=== PATIENT | female | born 1980 | race Caucasian/White ===

== ENCOUNTER 2019-03-09 05:33 | Emergency (ER) | payer OTHER ==
[2019-03-09] MEDS ORDERED: SODIUM CHLORIDE 0.9% 1,000 ML IV ONE (05:49)
--- NOTE | 2019-03-09 05:52 | ED Physician Documentation ---
History of Present Illness - Stated complaint Stated Complaint: DIFF BREATHING - Chief complaint Chief Complaint: Resp - History obtained from History obtained from: Patient - Additonal information Additional information: Patient is a previously healthy 38-year-old female presenting with right-sided pleuritic chest pain and SOB that began about 1 day ago. Patient denies trauma, fall, or inciting incident.Patient did have plantar fasciitis surgery to her right foot about 1 month ago and denies any complications with such including any new significant leg pain or swelling. Patient does not have history of clotting disorder or previous clots including DVT or PE. Patient denies other chest pain, productive cough, fever, vomiting, urinary or stool changes. No other improving or worsening factors noted. Review of Systems Constitutional: denies: Fever Cardiac: reports: Chest pain / pressure. denies: Calf pain Respiratory: reports: Dyspnea PD PAST MEDICAL HISTORY - Past Medical History Past Medical History: No - Past Surgical History Past Surgical History: Yes Other past surgical history: Plantar fasciitis, bunion removal, ligament repair - Present Medications Home Medications: Ambulatory Orders Medication Instructions Recorded Confirmed Acetaminophen [Tylenol] 650 mg PO Q6H PRN 03/09/19 03/09/19 - Allergies Allergies/Adverse Reactions: Allergies Allergy/AdvReac Type Severity Reaction Status Date / Time No Known Drug Allergies Allergy Verified 03/09/19 05:37 PD ED PE NORMAL - Vitals Vital signs reviewed: Yes - General General: Alert and oriented X 3, No acute distress, Well developed/nourished - HEENT HEENT: Atraumatic, Moist mucous membranes - Cardiac Cardiac: RRR, No murmur, Other (No reproducible chest pain) - Respiratory Respiratory: No respiratory distress, Clear bilaterally - Abdomen Abdomen: Normal bowel sounds, Soft, Non tender, Non distended - Derm Derm: Normal color, Warm and dry, No rash - Extremities Extremities: No deformity, No edema, No calf tenderness / cord, Other (Walking boot in place over right foot) - Neuro Neuro: Alert and oriented X 3, No motor deficit, No sensory deficit - Psych Psych: Normal mood, Normal affect Results - Vitals Vitals: Vital Signs - 24 hr 03/09/19 05:37 Temperature 37.6 C H Heart Rate 91 Respiratory 20 Rate Blood Pressure 130/77 O2 Saturation 97 Oxygen O2 Source Room air - EKG (time done) 0554 Rate: Rate (enter#) (79) Rhythm: NSR - Labs Labs: Laboratory Tests 03/09/19 03/09/19 03/09/19 05:50 05:50 05:50 WBC 6.8 RBC 4.11 L Hgb 12.3 Hct 37.3 MCV 90.9 MCH 30.0 MCHC 33.0 RDW 14.9 Plt Count 304 MPV 7.6 L Neut # (Auto) 4.5 Lymph # (Auto) 1.8 [place] # (Auto) 0.4 Eos # (Auto) 0.1 Baso # (Auto) 0.0 Absolute Nucleated RBC 0.00 Nucleated RBC % 0.0 PT 11.3 INR 1.0 APTT 28.5 Sodium 136 Potassium 3.9 Chloride 105 Carbon Dioxide 20 L Anion Gap 11.0 BUN 19 Creatinine 0.7 Estimated GFR (MDRD) 93 Glucose 108 H Calcium 9.1 Total Bilirubin 0.6 AST 21 ALT 29 Alkaline Phosphatase 95 Troponin I Total Protein 6.9 Albumin 4.0 Globulin 2.9 Albumin/Globulin Ratio 1.4 Lipase 33 Serum HCG, Qual NEGATIVE 03/09/19 05:50 WBC RBC Hgb Hct MCV MCH MCHC RDW Plt Count MPV Neut # (Auto) Lymph # (Auto) [place] # (Auto) Eos # (Auto) Baso # (Auto) Absolute Nucleated RBC Nucleated RBC % PT INR APTT Sodium Potassium Chloride Carbon Dioxide Anion Gap BUN Creatinine Estimated GFR (MDRD) Glucose Calcium Total Bilirubin AST ALT Alkaline Phosphatase Troponin I < 0.04 Total Protein Albumin Globulin Albumin/Globulin Ratio Lipase Serum HCG, Qual PD MEDICAL DECISION MAKING - ED course Complexity details: reviewed old records, reviewed results, re-evaluated patient, considered differential, d/w patient ED course: Given patient's pleuritic chest pain, shortness of breath, and recent surgery, do have concern for possible PE. Patient is not appropriate for ddimer or PERC rule out. Have lower suspicion for ACS, myocardial infarction, unstable angina based on exam, complaints, and otherwise young and healthy patient. However, will obtain EKG and troponin. Given duration of symptoms, repeat troponin will not be required. Based on symptoms, also have lower suspicion for pneumonia, but will obtain imaging. Patient currently denies trauma and feel that rib fracture or contusion is less likely as well. IV placement obtained and patient received IV fluids and lab work taken. Will obtain CTA chest once lab work returns.Lab work returned relatively unremarkable. EKG within normal limits and not concerning for ischemia or other abnormalities. CTA performed which returned somewhat equivocal, although no gross abnormalities noted. [place] appropriate to further confirm a d-dimer. Patient signed out to Dr. Martin at approximately 0730. Disposition pending d-dimer and reevaluation.
[2019-03-09 06:09] LABS: BASOPHILS % (AUTO) 0.7 %; EOSINOPHILS # (AUTO) 0.1 10^3/uL (0.0-0.7); EOSINOPHILS % (AUTO) 1.1 %; HGB - HEMOGLOBIN 12.3 g/dL (12.0-16.0); LYMPHOCYTES # (AUTO) 1.8 10^3/uL (1.5-3.5); LYMPHOCYTES % (AUTO) 26.1 %; MEAN CORPUSCULAR VOLUME 90.9 fL (81.0-99.0); MEAN PLATELET VOLUME 7.6 fL (7.9-10.8); MONOCYTES # (AUTO) 0.4 10^3/uL (0.0-1.0); MONOCYTES % (AUTO) 6.1 %; NEUTROPHILS # (AUTO) 4.5 10^3/uL (1.5-6.6); PLT - PLATELET COUNT 304 10^3/uL (130-450); RED BLOOD COUNT 4.11 10^6/uL (4.20-5.40); RED CELL DISTRIBUTION WIDTH 14.9 % (12.0-15.0); WHITE BLOOD COUNT 6.8 x10^3/uL (4.8-10.8)
[2019-03-09 06:27] LABS: PT - PROTHROMBIN TIME 11.3 secs (9.9-12.6)
[2019-03-09 06:28] LABS: ALBUMIN/GLOBULIN RATIO 1.4 (1.0-2.2); ALKALINE PHOSPHATASE 95 IU/L (42-121); ALT ALANINE AMINOTRANSFERASE 29 IU/L (10-60); AST ASPARTATE AMINOTRANSFERASE 21 IU/L (10-42); BILIRUBIN,TOTAL 0.6 mg/dL (0.2-1.0); BUN - BLOOD UREA NITROGEN 19 mg/dL (6-20); CALCIUM 9.1 mg/dL (8.5-10.3); CARBON DIOXIDE - CO2 20 mmol/L (21-32); CHLORIDE 105 mmol/L (101-111); CREATININE 0.7 mg/dL (0.4-1.0); GFR - MDRD 93 (>89); GLUCOSE 108 mg/dL (70-100); LIPASE 33 U/L (22-51); SODIUM 136 mmol/L (135-145); TOTAL PROTEIN 6.9 g/dL (6.7-8.2)
[2019-03-09 06:29] LABS: HCG,QUALITATIVE BLOOD NEGATIVE
[2019-03-09 06:34] LABS: PARTIAL THROMBOPLASTIN TIME 28.5 secs (24.9-33.3)
[2019-03-09] MEDS ORDERED: IOVERSOL 320 100 ML VIAL IVP ONE ×2 (06:42→07:08)
--- NOTE | 2019-03-09 07:19 | CT Report ---
Reason: concern for PE Procedure Date: 03/09/2019 Accession Number: [id number] / [id number] Procedure: CT - ANGIO CHEST W/WO CPT Code: FULL RESULT: EXAM: CT ANGIOGRAM CHEST EXAM DATE: 03/09/2019 07:05 AM. CLINICAL HISTORY: Concern for PE. Left lower chest pain, shortness of breath. Foot surgery one month ago. COMPARISON: None. TECHNIQUE: Routine helical imaging was performed through the chest in the pulmonary arterial phase. IV Contrast: 80 ML OPTIRAY 320. Reconstructions: Coronal 3-D MIP reconstructions.Sagittal and coronal. In accordance with CT protocol optimization, one or more of the following dose reduction techniques were utilized for this exam: automated exposure control, adjustment of mA and/or KV based on patient size, or use of iterative reconstructive technique. FINDINGS: Pulmonary Arteries: Diagnostic quality: Inadequate through the segmental arteries. There is mild central pulmonary arterial enhancement. Contrast density is considerably greater in the pulmonary veins and left heart. No central pulmonary embolism is identified. Heart: Normal size. RV/LV is within normal limits. There is no interventricular septal bowing. There is no reflux of contrast material in the IVC. Lungs/Pleura: There is moderate respiratory motion artifact bilaterally. There is a 1.6 cm thin-walled oval lung cyst superiorly in the superior segment of the right lower lobe. There is a small geographic area of lucency in the posterior segment right upper lobe consistent with air trapping. No consolidation, nodules, or edema. No effusions or pneumothorax. Mediastinum: No lymphadenopathy. Thyroid gland and esophagus are unremarkable. Thoracic Aorta: Unremarkable. Upper Abdomen: Diffuse hepatic steatosis with focal fatty sparing of the maria teresa hepatis and gallbladder fossa. Other: The visualized chest wall is unremarkable. Bones are unremarkable. IMPRESSION: 1. Because of poor pulmonary arterial opacification and of moderate motion artifact, the study is nondiagnostic and the majority of the segmental pulmonary arteries. No gross central pulmonary embolism is identified. 2. Thin-walled 1.6 cm simple lung cyst in the superior segment of the right lower lobe small area of air trapping in the posterior segment right upper lobe. Otherwise, lungs are clear. 3. Hepatic steatosis. RADIA
--- NOTE | 2019-03-09 08:22 | ED Physician Documentation ---
ED Addendum - Addendum Addendum: 03/09/19 08:21 Patient signed out by Dr. Wells. Briefly this is a 38-year-old woman with foot surgery a month ago who presents with pleuritic right-sided chest pain. Her examination is normal. A CT was done which was inconclusive because of motion, but there was no large PE. We decided to get a d-dimer. Although it flags as high most authorities would consider this value to be negative as would I and I think PE is ruled out.
[2019-03-09 09:10] VITALS: BP 145/95
--- NOTE | 2019-04-05 23:28 | ED Physician Documentation ---
ED Addendum - Addendum Addendum: 04/05/19 23:28 Clinical impression: SOB
== END 2019-03-09 09:09 | disposition home or self-care (01) ==
LOC: ED 05:33
DX: R06.02 Shortness of breath (principal); R07.81 Pleurodynia; Z98.890 Other specified postprocedural states
CPT/HCPCS: 36415; 71275; 80053; 83690; 84484; 84703; 85025; 85379; 85610; 85730; 93005; 96360; 96361; 99283; Q9967